=== PATIENT | male | born 1950 | race Caucasian/White ===

== ENCOUNTER 2017-12-15 06:56 | Day surgery (SDC) | payer MEDICARE, OTHER ==
[2017-12-15] MEDS ORDERED: LACTATED RINGERS 1,000 ML IV ONE (07:09)
[2017-12-15 08:09] LABS: BASOPHILS # (AUTO) 0.1 10^3/uL (0.0-0.1); BASOPHILS % (AUTO) 1.3 %; EOSINOPHILS # (AUTO) 0.1 10^3/uL (0.0-0.7); EOSINOPHILS % (AUTO) 1.2 %; HGB - HEMOGLOBIN 15.8 g/dL (14.0-18.0); LYMPHOCYTES # (AUTO) 1.8 10^3/uL (1.5-3.5); LYMPHOCYTES % (AUTO) 21.5 %; MEAN CORPUSCULAR HEMOGLOBIN 30.1 pg (27.0-31.0); MEAN CORPUSCULAR HGB CONC 34.3 g/dL (32.0-36.0); MEAN CORPUSCULAR VOLUME 87.7 fL (80.0-94.0); MEAN PLATELET VOLUME 7.4 fL (7.4-11.4); MONOCYTES # (AUTO) 0.6 10^3/uL (0.0-1.0); NEUTROPHILS # (AUTO) 5.9 10^3/uL (1.5-6.6); PLT - PLATELET COUNT 233 10^3/uL (130-450); RED BLOOD COUNT 5.26 10^6/uL (4.70-6.10); RED CELL DISTRIBUTION WIDTH 12.4 % (12.0-15.0); WHITE BLOOD COUNT 8.5 x10^3/uL (4.8-10.8)
[2017-12-15 08:16] LABS: CALCIUM 9.6 mg/dL (8.5-10.3); CREATININE 0.9 mg/dL (0.6-1.2)
[2017-12-15] MEDS ORDERED: fentaNYL 250 MCG/5 ML VIAL IVP ONE (08:44)
[2017-12-15] MEDS ORDERED: MIDAZOLAM 2 MG/2 ML VIAL IVP ONE (08:44)
[2017-12-15 09:43] VITALS: BP 109/63
== END 2017-12-15 06:57 | disposition home or self-care (01) ==
LOC: SDS 06:56
PROVIDERS: ATTEND Internal Medicine Gastroenterology
PROC: 0DBN8ZX Excision of Sigmoid Colon, Via Natural or Artificial Opening Endoscopic, Diagnostic (ICD-10-PCS; principal; 2017-12-15 08:45)
DX: Z12.11 Encounter for screening for malignant neoplasm of colon (principal); D12.5 Benign neoplasm of sigmoid colon; K63.5 Polyp of colon; I10 Essential (primary) hypertension; E78.00 Pure hypercholesterolemia, unspecified; E11.9 Type 2 diabetes mellitus without complications; G47.30 Sleep apnea, unspecified; J30.9 Allergic rhinitis, unspecified
CPT/HCPCS: 45380; 80048; 85025; 93005; J3010; J7120; 88305

== ENCOUNTER 2018-09-07 09:43 | Outpatient (CLI) | payer MEDICARE, OTHER ==
[2018-09-07] MEDS ORDERED: GADOBUTROL 10 MMOL/10 ML VIAL ONE (13:19)
--- NOTE | 2018-09-07 16:04 | MRI Report ---
Reason: TRANSIENT CEREBRAL ISCHEMIC ATTACK,UNSPECIFIED Procedure Date: 09/07/2018 Accession Number: [id number] / [id number] Procedure: MRI - Angio Brain W/O (MRA) CPT Code: FULL RESULT: EXAM MRA BRAIN EXAM DATE: 09/07/2018 01:41 PM. CLINICAL HISTORY: TRANSIENT CEREBRAL ISCHEMIC ATTACK,UNSPECIFIED. COMPARISON: None. TECHNIQUE: Multiplanar, multisequence MRA sequences of the brain were performed. Other: None. Post-processing: Multiplanar 3D MIP reconstructions. IV Contrast: None. FINDINGS: RIGHT Internal Carotid (ICA): No aneurysm, stenosis or anomaly. Middle Cerebral (MCA): No aneurysm, stenosis or anomaly. Anterior Cerebral (JUAN JOSE): No aneurysm, stenosis or anomaly. Posterior Cerebral ([employer]PUT[employer]ARDWARE [employer]ER): No aneurysm, stenosis or anomaly. Posterior Communicating (P-COM): Not visualized Vertebral: No aneurysm, stenosis or anomaly in the visualized upper vertebral artery. LEFT Internal Carotid (ICA): No aneurysm, stenosis or anomaly. Middle Cerebral (MCA): No aneurysm, stenosis or anomaly. Anterior Cerebral (JUAN JOSE): No aneurysm, stenosis or anomaly. Posterior Cerebral (COMPUTER HARDWARE ENGINEER): No aneurysm, stenosis or anomaly. Posterior Communicating (P-COM): Not visualized Vertebral: No aneurysm, stenosis or anomaly in the visualized upper vertebral artery. MIDLINE Anterior Communicating (A-COM): No aneurysm, stenosis or anomaly. Basilar Artery:No aneurysm, stenosis or anomaly. Other: None. IMPRESSION: 1. Unremarkable brain MRA. No stenoses, large vessel occlusions, or aneurysms. [facility]
--- NOTE | 2018-09-07 16:07 | MRI Report ---
Reason: TRANSIENT CEREBRAL ISCHEMIC ATTACK,UNSPECIFIED Procedure Date: 09/07/2018 Accession Number: [id number] / [id number] Procedure: MRI - Angio Neck W/WO (MRA) CPT Code: FULL RESULT: EXAM: MR ANGIOGRAM NECK EXAM DATE: 09/07/2018 01:56 PM. CLINICAL HISTORY: 68-year-old male. TRANSIENT CEREBRAL ISCHEMIC ATTACK,UNSPECIFIED. COMPARISON: MRA head obtained and currently TECHNIQUE: Multiplanar, multisequence MRA sequences of the neck were performed. Other: None. Post-processing: Multiplanar 3D MIP reconstructions. IV Contrast: 10 ML Gadavist. Evaluation of arterial stenosis is based on a NASCET method of measurement. FINDINGS: RIGHT Common Carotid: Patent. No dissection or significant stenosis. Internal Carotid: Patent. No dissection or significant stenosis. External Carotid: Patent. No dissection or significant stenosis. Vertebral: Patent. No dissection or significant stenosis. LEFT Common Carotid: Patent. No dissection or significant stenosis. Internal Carotid: Patent. No dissection or significant stenosis. External Carotid: Patent. No dissection or significant stenosis. Vertebral: Patent. No dissection or significant stenosis. Intracranial Circulation: Concurrently obtained MRA head has been dictated separately. Other: The soft tissues, bones, and lung apices are unremarkable. IMPRESSION: 1. Normal neck MRA. No hemodynamically significant stenoses. 2. Concurrently obtained MRA head has been dictated separately. [facility]IA
== END 2018-09-07 09:44 | disposition home or self-care (01) ==
LOC: DI 09:43
PROVIDERS: ATTEND Family Medicine
DX: G45.9 Transient cerebral ischemic attack, unspecified (principal)
CPT/HCPCS: 70544; 70549; A9585